=== PATIENT | male | born 1995 | race Caucasian/White ===

== ENCOUNTER 2017-11-07 08:08 | Emergency (ER) | payer MEDICAID ==
[~2017-11-07] VITALS: Ht 182.9 cm; Wt 69.0 kg
[2017-11-07] MEDS ORDERED: IPRATROPIUM/ALBUTEROL 0.5-3(2.5)MG/3ML NEB HHN ONE (09:45)
[2017-11-07 10:38] LABS: BASOPHILS % 0.4 % (0.0-2.0); EOSINOPHILS % 2.4 % (0.0-5.0); HEMATOCRIT. 31.3 % (42.0-52.0); HEMOGLOBIN. 10.7 g/dL (14.0-18.0); LYMPHOCYTES % 16.7 % (20.0-50.0); MEAN CORPUSCULAR HEMOGLOBIN 29.6 pg (28.0-32.0); MEAN CORPUSCULAR VOLUME 86.8 fL (80.0-94.0); MEAN PLATELET VOLUME 8.3 fl (7.4-10.4); MONOCYTES % 13.7 % (2.0-8.0); NEUTROPHILS % 66.8 % (40.0-76.0); PLATELET 236 x1000/uL (130-400); RED BLOOD CELL COUNT 3.61 mill/uL (4.7-6.1); RED CELL DISTRIBUTION WIDTH 14.9 % (11.6-14.6)
[2017-11-07 10:44] LABS: CHLORIDE 107 mEq/L (98-107)
[2017-11-07 11:31] VITALS: BP 121/66
== END 2017-11-07 11:32 | disposition home or self-care (01) ==
LOC: ER 08:08
DX: J45.909 Unspecified asthma, uncomplicated (principal); D64.9 Anemia, unspecified; F12.10 Cannabis abuse, uncomplicated; R19.7 Diarrhea, unspecified; Z88.1 Allergy status to other antibiotic agents
CPT/HCPCS: 36415; 71045; 80048; 85025; 94640; 99285; J7620

== ENCOUNTER 2020-01-20 12:41 | Emergency (ER) | payer MEDICAID ==
[~2020-01-20] VITALS: Ht 182.9 cm; Wt 90.0 kg
[2020-01-20 12:43] VITALS: BP 110/48
[2020-01-20] MEDS ORDERED: ACETAMINOPHEN WITH CODEINE 300/30MG TABLET PO ONE (13:15)
== END 2020-01-20 13:25 | disposition home or self-care (01) ==
LOC: ER 13:07
DX: K08.89 Other specified disorders of teeth and supporting structures (principal); F12.10 Cannabis abuse, uncomplicated; Z98.890 Other specified postprocedural states; Z88.0 Allergy status to penicillin
CPT/HCPCS: 99283

== ENCOUNTER 2021-05-26 10:28 | Emergency (ER) | payer MEDICAID ==
[~2021-05-26] VITALS: Ht 175.3 cm; Wt 68.0 kg
[2021-05-26] MEDS ORDERED: P50 PO (11:44)
[2021-05-26] MEDS ORDERED: ALBU18HF2 IH (11:44)
[2021-05-26] MEDS ORDERED: NAPR-681 PO (11:44)
[2021-05-26] MEDS ORDERED: ONDA4TAB5 PO (11:44)
[2021-05-26 11:59] VITALS: BP 116/60
== END 2021-05-26 12:02 | disposition home or self-care (01) ==
LOC: ER 10:28
DX: J45.909 Unspecified asthma, uncomplicated (principal); Z86.16 Personal history of COVID-19; F12.10 Cannabis abuse, uncomplicated; Z98.890 Other specified postprocedural states; Z88.0 Allergy status to penicillin
CPT/HCPCS: 99283